=== PATIENT | male | born 1990 | race Caucasian/White ===

== ENCOUNTER 2017-06-21 21:27 | Emergency (ER) | payer MEDICAID ==
[~2017-06-21] VITALS: Ht 170.2 cm; Wt 75.5 kg
[2017-06-21 21:30] VITALS: Ht 170.2 cm; Wt 75.5 kg
[2017-06-21] MEDS ORDERED: ACETAMINOPHEN 325 MG TAB PO ONE (23:00)
[2017-06-21] MEDS ORDERED: DIPHTH/TET/ACEL PERTUSS (ADULT) 0.5 ML VIAL IM* ONE (23:00)
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
[2017-06-22] MEDS ORDERED: AZIT250T94 PO (00:14)
[2017-06-22 00:43] VITALS: BP 130/59; PULSE 100; RESP 14; TEMP 98.7
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
== END 2017-06-22 00:44 | disposition home or self-care (01) ==
LOC: FTE 21:27
DX: S09.90XA Unspecified injury of head, initial encounter (principal); F17.210 Nicotine dependence, cigarettes, uncomplicated; R51 Headache; Y08.89XA Assault by other specified means, initial encounter; Z23 Encounter for immunization
CPT/HCPCS: 70450; 70486; 90471; 90715; Z7502; Z7610

== ENCOUNTER 2019-02-02 10:35 | Emergency (ER) | payer MEDICAID, OTHER ==
[~2019-02-02] VITALS: Ht 170.2 cm; Wt 73.4 kg
[~2019-02-02 10:35] MED LIST: AZIT250T PO
[2019-02-02 10:50] VITALS: BP 143/74; PULSE 80; RESP 18; Ht 170.2 cm; Wt 73.4 kg
[2019-02-02] MEDS ORDERED: IBUPROFEN 800 MG TAB PO ONE (11:30)
[2019-02-02] MEDS ORDERED: NAPR-985 PO (12:56)
[2019-02-02] MEDS ORDERED: CEPH-443 PO (12:56)
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
== END 2019-02-02 13:26 | disposition home or self-care (01) ==
LOC: FTE 10:35
DX: L08.9 Local infection of the skin and subcutaneous tissue, unspecified (principal); Z87.891 Personal history of nicotine dependence
CPT/HCPCS: 73140; Z7502; Z7610